=== PATIENT | male | born 1955 | race Caucasian/White ===

== ENCOUNTER 2021-10-13 19:02 | Inpatient (IN) | payer MEDICARE, OTHER ==
[~2021-10-13] VITALS: Ht 170.2 cm; Wt 81.6 kg
--- NOTE | 2021-10-13 19:30 | NUR ---
[facility]. ON 5150 HOLD FOR CUTTING HIS WRIST. PT ADMITS FEELING DEPRESSED & HAD A PINK VODKA. PATIENT CAME WITH BILATERAL WRIST RESTRAINTS ACCOMPANIED BY [employer]. PLACED IN BED 14. VITALS CHECKED.
--- NOTE | 2021-10-13 19:46 | NUR ---
COVID SWAB DONE AND SENT TO LAB
--- NOTE | 2021-10-13 19:46 | NUR ---
IV CANNULA INSERTED ON RIGHT AC USING G18 NEEDLE. BLOOD DRAWN AND SENT TO LAB
[2021-10-13] MEDS ORDERED: LORAZEPAM INJ 2 MG/ML VIAL IVP ONE (20:00)
[2021-10-13] MEDS ORDERED: IV NS 0.9% 1,000 ML IV ONE (20:00)
[2021-10-13] MEDS ORDERED: TDAP [DIPH/PERTUSSIS/TET] 0.5 ML VIAL IM ONE ×2 (20:00→20:02)
[2021-10-13] MEDS ORDERED: LORAZEPAM INJ 2 MG/ML VIAL ONE (20:02)
[2021-10-13 20:04] LABS: CALCIUM, SERUM 8.8 mg/dL (8.5-10.1); CREATININE 1.3 mg/dL (0.6-1.3); POTASSIUM 3.7 mmol/L (3.5-5.1)
[2021-10-13 20:09] LABS: ALBUMIN 3.7 g/dL (3.4-5.0); BILIRUBIN,DIRECT 0.1 mg/dL (0.0-0.2); BILIRUBIN,TOTAL 0.2 mg/dL (0.2-1.0); TOTAL PROTEIN, SERUM 7.1 g/dL (6.4-8.2)
[2021-10-13 20:12] LABS: BASOPHILS # (AUTO) 0.1 K/uL (0.0-0.2); BASOPHILS % (AUTO) 0.8 % (0.0-2.0); EOSINOPHILS % (AUTO) 2.6 % (0.0-6.0); HEMATOCRIT 41 % (39-51); HEMOGLOBIN 13.7 g/dL (13.5-17.5); LYMPHOCYTES # (AUTO) 2.2 K/uL (0.8-4.8); LYMPHOCYTES % (AUTO) 34.2 % (20.0-44.0); MEAN CORPUSCULAR HGB CONC 34 g/dl (31.0-36.0); MEAN CORPUSCULAR VOLUME 93 fL (80-96); MONOCYTES # (AUTO) 0.6 K/uL (0.1-1.30); MONOCYTES % (AUTO) 9.9 % (2.0-12.0); NEUTROPHILS # (AUTO) 3.4 K/uL (1.8-8.9); NEUTROPHILS % (AUTO) 52.5 % (43.0-81.0); PLATELET COUNT (AUTO) 212 K/uL (150-450); WHITE BLOOD COUNT (AUTO) 6.4 K/uL (4.3-11.0)
--- NOTE | 2021-10-13 20:21 | NUR ---
PT AMBULATED TO BATHROOM ACCOMPANIED BY SITTER, STEADY GAIT NOTED
--- NOTE | 2021-10-13 22:46 | NUR ---
PROVIDED PT WITH FOOD AND WATER, 1:1 SITTER. WILL CONTINUE TO MONITOR.
[2021-10-13 23:19] LABS: BILIRUBIN,URINE NEGATIVE (NEGATIVE); COLOR,URINE YELLOW (YELLOW); LEUKOCYTE ESTERASE ,URINE NEGATIVE (NEGATIVE); NITRITE, URINE NEGATIVE (NEGATIVE); PH,URINE 5.5 (5.0-8.0); PROTEIN,URINE NEGATIVE (NEGATIVE); UGLUCOSE NEGATIVE (NEGATIVE); UROBILINOGEN,URINE 0.2 EU/dL (0.2)
--- NOTE | 2021-10-14 01:08 | NUR ---
PT IS ASLEEP, 1:1 SITTER. WILL CONTINUE TO MONITOR
--- NOTE | 2021-10-14 02:19 | NUR ---
LAB AT BEDSIDE
[2021-10-14] MEDS ORDERED: LISI1TAB29 PO (02:48)
[2021-10-14] MEDS ORDERED: AMLO2.5T2 PO (02:48)
[2021-10-14] MEDS ORDERED: ROSU10TA2 PO (02:48)
[2021-10-14] MEDS ORDERED: DIAZ10TA PO (02:51)
[2021-10-14] MEDS ORDERED: QUET25TA PO (02:51)
[2021-10-14] MEDS ORDERED: HYDR-3980 PO (02:51)
--- NOTE | 2021-10-14 04:34 | NUR ---
REPORT GIVEN TO ANA SANDOVAL FOR ANGEL
--- NOTE | 2021-10-14 05:20 | NUR ---
Pt is going to unit on wheelchair on stable condition with EMT at bedside.
[2021-10-14] MEDS ORDERED: MAG HYDROX/AL HYDROX/SIMETH 30 ML UDC PO PRN (05:30)
[2021-10-14] MEDS ORDERED: ACETAMINOPHEN 325 MG TABLET PO PRN (05:30)
[2021-10-14] MEDS ORDERED: MAGNESIUM HYDROXIDE 30 ML UDC PO PRN (05:30)
[2021-10-14] MEDS ORDERED: ZOLPIDEM TARTRATE 5 MG TABLET PO PRN (05:30)
[2021-10-14 05:40] VITALS: BP 141/82
[2021-10-14] MEDS ORDERED: BLOOD SUGAR DIAGNOSTIC 1 EACH STRIP IN ONE (05:45)
[2021-10-14] MEDS ORDERED: LOPE2CAP40 PO (05:56)
[2021-10-14] MEDS ORDERED: LORAZEPAM 1 MG TABLET PO PRN (06:00)
--- NOTE | 2021-10-14 06:05 | NUR ---
GPS RN NOTE PATIENT REFUSED TO GIVE ANY FAMILY INFORMATION TO NOTIFY ABOUT HIS ADMISSION AT [facility], GPS UNIT, PER PATIENT," I WILL CALL THEM LATER, YOU DON'T NEED TO CALL ANYONE AT THE MOMENT."
--- NOTE | 2021-10-14 06:15 | NUR ---
GPS DISPOSAL PLANT OPERATOR NOTE: ADMITTED 66 Y/O MALE PATIENT FROM [facility], ER TO GPS ON 5150 HOLD, PER HOLD OFFICER RESPONDED TO A RADIO CALL OF AN ATTEMPT SUICIDE, UPON ARRIVAL OFFICERS MADE CONTACT WITH JANNIE SITTING ON HIS COUCH WITH THE FRONT DOOR OPE. OFFICERS OBSERVED SUPERFICIAL CUTS TO BOTH WRIST. JANNIE STATE, HE HAS BEEN DRINKING DUE TO BEING DEPRESSED. JANNIE STATED HE DELIBERATELY SLIT HIS WRISTS. BASED ON JANNIE SELF ADMISSION AND VISIBLE CUT TO BOTH WRISTS, OFFICERS REASONABLY BELIEVE JANNIE POSES AN IMMEDIATE THREAT A DANGER TO HIMSELF. UPON FACE TO FACE ASSESSMENT, PATIENT IS A & O X 2-3 COOPERATIVE, EASILY IRRITABLE, ANXIOUS, RESTLESS, HYPERVERBAL, PER PATIENT "FORGETFUL," DISHEVELED, DEPRESSED, FLAT AFFECT, DENIES SI /HI AT THIS TIME, PER PATIENT," THAT WAS A MISTAKE.', PT. IS AMBULATORY, UNSTEADY AT TIMES. COVID/PNEUMOCCOCAL VACCINE INFORMATION OBTAINED. PT. REFUSED FLU VACCINE. BOTH MD AWARE AND NOTIFIED OF THE ADMISSION, BELONGINGS CONTRABAND WERE DONE, PT. REFUSED TO SIGNS ADMISSION CONSENT PAPERS DUE TO BEING TIRED, SKIN ASSESSMENT AND ACCU CHECK DONE, BOTH MD AWARE AND NOTIFIED OF THE ADMISSION, BELONGINGS CONTRABAND WERE DONE, PT. RIGHTS DISCUSS BY MANAGER PRODUCT DESIGN, PROVIDED THE PT. WITH HANDBOOK AND MEDICATIONS GUIDE, ENVIRONMENTAL SAFETY CHECK DONE, ENCOURAGED PT. VERBALIZED ANY FEELING CONCERN TO STAFF, ORIENT TO UNIT POLICY, NO ACUTE DISTRESS NOTED, VITAL SIGNS WNL, DENIES ANY PAIN AT THIS TIME, SAFETY MEASURES IN PLACE. WILL CONTINUE TO MONITOR FOR Q15 SAFETY AND BEHAVIOR.
--- NOTE | 2021-10-14 06:49 | NUR ---
PER PATIENT MRSA WAS DONE IN THE ER AND REFUSED TO DO IT AT THIS TIME.
[2021-10-14] MEDS ORDERED: LISI40TA13 PO (07:51)
[2021-10-14 08:00] VITALS: BP 157/91
--- NOTE | 2021-10-14 08:02 | NUR ---
WOUND CARE CONSULT: PT PRESENTS WITH EXCORIATIONS TO BILATERAL WRISTS WITHOUT TENDERNESS, DRAINAGE OR ERYTHEMA, PRESENT ON ADMISSION. WILL SEE PRN. PT IS AMBULATORY AND CONTINENT.
[2021-10-14] MEDS ORDERED: METO100T14 PO (08:42)
[2021-10-14] MEDS: NICOTINE PATCH (21MG) 21 MG PATCH.TD24 TD SCH (08:45)
--- NOTE | 2021-10-14 09:00 | NUR ---
GPS/RN RECEIVED PT RESTING IN THE BED NO ACUTE DISTRESS NOTED. DAILY MEDS COMPLIANT. AMBULATORY. VSS. ALL NEEDS ATTENDED AND ANTICIPATED. WILL CONTINUE TO MONITOR Q15MIN FOR SAFETY AND BEHAVIOR. KEON THURMAN CLOTH LAYER CONTACTED TO RECONCILE THE HOME MEDS.
--- NOTE | 2021-10-14 10:59 | NUR ---
VERENICE Initial Discharge Note: Patient currently resides at [address] [place] [address]. Patient stated he lives with a friend and would want to return back home. Pt does not have any supportive contact at this time. VERENICE will work with the MD and treatment team to help coordinate appropriate discharge.
--- NOTE | 2021-10-14 10:59 | NUR ---
Clinical Social Work Note: Patient placed on a 5150 hold for danger to himself. Pt was drinking at home and had cut his wrist. Patient currently resides at [address] [place] [address]. Patient stated he lives with a friend and would want to return back home. Pt does not have any supportive contact at this time.
--- NOTE | 2021-10-14 11:00 | NUR ---
Social Work Note/Substance Abuse Intervention: Patient was provided with a brief substance abuse intervention and referred to [facility] ([phone]), [facility] ([phone]), and [facility] ([phone]) for drinking alcohol and smoking cigarettes.
[2021-10-14] MEDS: THIAMINE HCL 100 MG TABLET PO SCH (11:13)
[2021-10-14] MEDS: DIVALPROEX SODIUM 250 MG TABLET.DR PO SCH ×2 (11:13→17:45)
[2021-10-14] MEDS: DIAZEPAM 5 MG TABLET PO PRN (13:34)
[2021-10-14] MEDS: HYDROCODONE/APAP 10/325MG TABLET PO PRN ×2 (15:45→22:03)
[2021-10-14 16:00] VITALS: BP 137/72
[2021-10-14] MEDS: LOPERAMIDE HCL (2 MG CAP) 2 MG CAPSULE PO PRN ×2 (17:46→22:55)
--- NOTE | 2021-10-14 19:25 | NUR ---
GPS RN NOTE, RECEIVED PATIENT AWAKE AND IN BED, PATIENT HAS A COMPLAINT OF CHRONIC LOWER BACK PAIN AT 8 OUT 10 ON THE PAIN SCALE. PATIENT IS TAKING PAIN MEDICATION FOR THIS PAIN. PATIENT IS DISPLAYING NO S/S OF APPARENT DISTRESS AT THIS TIME. PATIENT BREATHING IS UNLABORED WITH EQUAL RISE AND FALL OF THE CHEST. PATIENT IS ALERT AND ORIENTED X 3 ON ROOM AIR WITH A SPO2 95%. PATIENT IS COMPLIANT WITH MEDICATIONS, ANXIOUS, NEEDY, PARANOID, MAKES NEEDS KNOWN, AND COOPERATIVE. PATIENT DENIES SUICIDAL AND HOMICIDAL IDEATIONS AT THIS TIME. PATIENT ASSISTED WITH TURNING AND REPOSITIONING Q2HR AND PRN FOR COMFORT AND CIRCULATION. PATIENT HAS NO NEEDS AT THIS TIME. PATIENT EDUCATED ON THE USE OF THE CALL DAIGLE. PATIENT BED SIDE RAILS UP X 2 FOR SAFETY. PATIENT BED IS LOCKED, LOW, WITH BED ALARM ON. WILL CONTINUE TO MONITOR THIS PATIENT Q15 MINUTES WITH THE HELP OF STAFF TO MAINTAIN SAFETY.
[2021-10-14 20:00] VITALS: BP 151/88
[2021-10-14] MEDS: ATORVASTATIN 40 MG TABLET PO SCH (21:12)
[2021-10-14] MEDS: QUETIAPINE FUMARATE 100 MG TABLET PO SCH (21:12)
[2021-10-14] MEDS: METOPROLOL TARTRATE 50 MG TABLET PO SCH (21:21)
--- NOTE | 2021-10-14 22:04 | NUR ---
GPS RN NOTE, PATIENT HAS A COMPLAINT OF CHRONIC LOWER BACK PAIN AT 8 OUT 10 ON THE PAIN SCALE AND IS REQUESTING NORCO AT THIS TIME. PATIENT VITAL SIGNS ARE STABLE. GAVE NORCO 10-325 1 TAB PO Q6HR PRN ORDERED. WILL REASSESS FOR PAIN AND I WILL CONTINUE TO MONITOR THIS PATIENT WITH THE HELP OF STAFF.
--- NOTE | 2021-10-14 22:56 | NUR ---
GPS RN NOTE, PATIENT HAS A COMPLAINT OF LOOSE STOOL AND IS REQUESTING LOPERAMIDE AT THIS TIME. PATIENT VITAL SIGNS ARE STABLE. GAVE LOPERAMIDE 2MG PO Q4HR PRN ORDERED. WILL CONTINUE TO MONITOR THIS PATIENT WITH THE HELP OF STAFF.
--- NOTE | 2021-10-15 00:54 | NUR ---
GPS RN NOTE, EKTA HAS A COMPLAINT OF NOT BEING ABLE TO SLEEP AND IS REQUESTING AMBIEN AT THIS TIME. PATIENT VITAL SIGNS ARE STABLE. GAVE AMBIEN 5MG PO HS PRN ORDERED. WILL REASSESS FOR INSOMNIA AND I WILL CONTINUE TO MONITOR THIS PATIENT WITH THE HELP OF STAFF.
[2021-10-15] MEDS: DIAZEPAM 5 MG TABLET PO PRN ×3 (02:46→16:13)
--- NOTE | 2021-10-15 02:48 | NUR ---
GPS RN NOTE, PATIENT HAS A COMPLAINT OF FEELING ANXIOUS AND IS REQUESTING VALIUM AT THIS TIME. PATIENT VITAL SIGNS ARE STABLE. GAVE VALIUM 5MG PO Q6HR PRN ORDERED. WILL REASSESS FOR ANXIETY AND I WILL CONTINUE TO MONITOR THIS PATIENT WITH THE HELP OF STAFF.
[2021-10-15] MEDS: HYDROCODONE/APAP 10/325MG TABLET PO PRN ×3 (04:38→17:03)
[2021-10-15 07:42] LABS: BASOPHILS % (AUTO) 0.9 % (0.0-2.0); EOSINOPHILS % (AUTO) 2.1 % (0.0-6.0); HEMATOCRIT 41 % (39-51); HEMOGLOBIN 13.7 g/dL (13.5-17.5); LYMPHOCYTES # (AUTO) 1.4 K/uL (0.8-4.8); LYMPHOCYTES % (AUTO) 26.2 % (20.0-44.0); MEAN CORPUSCULAR HGB CONC 34 g/dl (31.0-36.0); MEAN CORPUSCULAR VOLUME 94 fL (80-96); MONOCYTES # (AUTO) 0.8 K/uL (0.1-1.30); MONOCYTES % (AUTO) 13.9 % (2.0-12.0); NEUTROPHILS # (AUTO) 3.2 K/uL (1.8-8.9); NEUTROPHILS % (AUTO) 56.9 % (43.0-81.0); PLATELET COUNT (AUTO) 170 K/uL (150-450); RED BLOOD CELL COUNT(AUTO) 4.39 MIL/uL (4.5-6.0); WHITE BLOOD COUNT (AUTO) 5.5 K/uL (4.3-11.0)
[2021-10-15] MEDS: THIAMINE HCL 100 MG TABLET PO SCH (07:53)
[2021-10-15] MEDS: DIVALPROEX SODIUM 250 MG TABLET.DR PO SCH ×2 (07:54→16:13)
[2021-10-15] MEDS: METOPROLOL TARTRATE 50 MG TABLET PO SCH ×2 (07:54→21:05)
[2021-10-15] MEDS: NICOTINE PATCH (21MG) 21 MG PATCH.TD24 TD SCH (07:54)
[2021-10-15 08:00] VITALS: BP 146/84
[2021-10-15 08:00] LABS: CALCIUM, SERUM 8.8 mg/dL (8.5-10.1); CREATININE 0.9 mg/dL (0.6-1.3)
[2021-10-15] MEDS: BUPROPION XL 150 MG TAB.ER.24 PO SCH (08:04)
[2021-10-15] MEDS: MULTIPLE VIT (LYCOPENE/FA/MV,CA,IRON,MIN/LUT)1 TAB PO SCH (08:04)
[2021-10-15] MEDS: AMLODIPINE BESYLATE 2.5 MG TABLET PO SCH (08:05)
[2021-10-15] MEDS: LISINOPRIL (20MG) 20 MG TABLET PO SCH (08:06)
--- NOTE | 2021-10-15 09:00 | NUR ---
GPS/RN RECEIVED PT RESTING IN THE BED NO ACUTE DISTRESS NOTED. DAILY MEDS COMPLIANT. MEDS SEEKING. AMBULATORY. VSS. ALL NEEDS ATTENDED AND ANTICIPATED. WILL CONTINUE TO MONITOR Q15MIN FOR SAFETY AND BEHAVIOR.
[2021-10-15 16:00] VITALS: BP 150/89
--- NOTE | 2021-10-15 16:19 | NUR ---
GPS/RN VALIUM PO GIVEN FOR ANXIETY REQUESTED
[2021-10-15 20:18] VITALS: BP 129/81
[2021-10-15] MEDS: ATORVASTATIN 40 MG TABLET PO SCH (21:05)
[2021-10-15] MEDS: QUETIAPINE FUMARATE 100 MG TABLET PO SCH (21:05)
[2021-10-15] MEDS: LOPERAMIDE HCL (2 MG CAP) 2 MG CAPSULE PO PRN (21:33)
[2021-10-16] MEDS: HYDROCODONE/APAP 10/325MG TABLET PO PRN ×5 (01:49→22:18)
--- NOTE | 2021-10-16 05:03 | NUR ---
GPS RN NOTE, PATIENT HAS A COMPLAINT OF CHRONIC LOWER BACK PAIN AT 8 OUT 10 ON THE PAIN SCALE AND IS REQUESTING NORCO AT THIS TIME. PATIENT VITAL SIGNS ARE STABLE. PAGED [facility] AND INFORMED HANK TOMAS DNP OF MY FINDINGS. HANK TOMAS DNP GAVE ORDER FOR NORCO 10-325 1 TAB PO Q4HR PRN. ALL ORDERS NOTED AND CARRIED OUT. WILL CONTINUE TO MONITOR THIS PATIENT WITH THE HELP OF STAFF.
[2021-10-16 08:00] VITALS: BP 146/95
[2021-10-16] MEDS: BUPROPION XL 150 MG TAB.ER.24 PO SCH (08:53)
[2021-10-16] MEDS: DIVALPROEX SODIUM 250 MG TABLET.DR PO SCH ×3 (08:53→16:02)
[2021-10-16] MEDS: NICOTINE PATCH (21MG) 21 MG PATCH.TD24 TD SCH (08:53)
[2021-10-16] MEDS: AMLODIPINE BESYLATE 2.5 MG TABLET PO SCH (08:53)
[2021-10-16] MEDS: THIAMINE HCL 100 MG TABLET PO SCH (08:53)
[2021-10-16] MEDS: MULTIPLE VIT (LYCOPENE/FA/MV,CA,IRON,MIN/LUT)1 TAB PO SCH (08:53)
[2021-10-16] MEDS: LISINOPRIL (20MG) 20 MG TABLET PO SCH (08:54)
[2021-10-16] MEDS: METOPROLOL TARTRATE 50 MG TABLET PO SCH ×2 (08:55→21:19)
--- NOTE | 2021-10-16 09:00 | NUR ---
GPS/RN RECEIVED PT RESTING IN THE BED NO ACUTE DISTRESS NOTED. DAILY MEDS COMPLIANT. AMBULATORY. VSS. ALL NEEDS ATTENDED AND ANTICIPATED. WILL CONTINUE TO MONITOR Q15MIN FOR SAFETY AND BEHAVIOR.
[2021-10-16] MEDS: DIAZEPAM 5 MG TABLET PO PRN (10:37)
[2021-10-16 16:00] VITALS: BP 121/82
--- NOTE | 2021-10-16 19:20 | NUR ---
GPS RN NOTES RECEIVED PATIENT IN THE DINING ROOM. ALERT AND ORIENTED X3. ABLE TO MAKE NEEDS KNOWN. PATIENT IS ANXIOUS AT TIMES, COOPERATIVE TO CARE, NEEDY, DENIES SI/HI/AVH AT THIS TIME. SAFETY PRECAUTIONS IN PLACE. WILL CONTINUE TO MONITOR Q15MIN ROUNDS FOR SAFETY AND BEHAVIOR.
[2021-10-16 20:19] VITALS: BP 133/81
[2021-10-16] MEDS: ATORVASTATIN 40 MG TABLET PO SCH (21:18)
[2021-10-16] MEDS: QUETIAPINE FUMARATE 100 MG TABLET PO SCH (21:18)
[2021-10-17] MEDS: HYDROCODONE/APAP 10/325MG TABLET PO PRN ×5 (02:33→23:51)
[2021-10-17 08:00] VITALS: BP 143/92
[2021-10-17] MEDS: BUPROPION XL 150 MG TAB.ER.24 PO SCH (08:46)
[2021-10-17] MEDS: AMLODIPINE BESYLATE 2.5 MG TABLET PO SCH (08:47)
[2021-10-17] MEDS: MULTIPLE VIT (LYCOPENE/FA/MV,CA,IRON,MIN/LUT)1 TAB PO SCH (08:47)
[2021-10-17] MEDS: LISINOPRIL (20MG) 20 MG TABLET PO SCH (08:47)
[2021-10-17] MEDS: METOPROLOL TARTRATE 50 MG TABLET PO SCH ×2 (08:47→21:12)
[2021-10-17] MEDS: NICOTINE PATCH (21MG) 21 MG PATCH.TD24 TD SCH (08:48)
[2021-10-17] MEDS: THIAMINE HCL 100 MG TABLET PO SCH (08:48)
[2021-10-17] MEDS: DIVALPROEX SODIUM 250 MG TABLET.DR PO SCH ×3 (08:48→16:14)
--- NOTE | 2021-10-17 09:00 | NUR ---
RN NOTE- RECEIVED PT RESTING IN THE BED NO ACUTE DISTRESS NOTED. DAILY MEDS COMPLIANT. AMBULATORY. VSS. ALL NEEDS ATTENDED AND ANTICIPATED. WILL CONTINUE TO MONITOR Q15MIN FOR SAFETY AND BEHAVIOR.
--- NOTE | 2021-10-17 09:00 | NUR ---
RN NOTE- PT RESTING IN THE BED NO ACUTE DISTRESS NOTED. MED COMPLIANT. AMBULATORY. VSS. ALL NEEDS ATTENDED AND ANTICIPATED. WILL CONTINUE TO MONITOR Q15MIN FOR SAFETY AND BEHAVIOR.
[2021-10-17] MEDS: DIAZEPAM 5 MG TABLET PO PRN ×2 (09:06→17:43)
--- NOTE | 2021-10-17 09:10 | NUR ---
RN NOTE- ANXIETY AND RESTLESSNESS STATED. VALIUM 5 MG ADMINISTERED
--- NOTE | 2021-10-17 09:58 | NUR ---
VERENICE Coordination of Care: Patient will follow up with (Psychiatrist) Dr. Davila located at [facility] [facility] [address], [place] [address]; on November 14 at 11AM, coordinated by logging engineer.
--- NOTE | 2021-10-17 09:58 | NUR ---
Individual Therapy: SW me with pt to conduct therapy. Pt presented with a flat affect. He stated that "nothing is wrong with me, I need to go home". Pt has no insight into mental illness and is fixated on discharge.
--- NOTE | 2021-10-17 09:58 | NUR ---
VERENICE Note: SW met with pt to help pt coordinate and pay for his rent. 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
[2021-10-17 16:00] VITALS: BP 120/86
--- NOTE | 2021-10-17 17:43 | NUR ---
RN NOTE- ANXIETY RESTLESSNESS. VALIUM 5 MG ADMINISTERED
[2021-10-17 19:42] VITALS: BP 143/87
--- NOTE | 2021-10-17 19:47 | NUR ---
GPS RN NOTES: PATIENT IS RESTLESS, ANXIOUS, IRRITABLE WITH C/O GENERALIZED BODY PAIN. NORCO 10-325MG 1TAB GIVEN PO PRN ORDERED AT 1944. WILL CONTINUE TO MONITOR.
--- NOTE | 2021-10-17 19:51 | NUR ---
GPS RN OPENING NOTES: RECEIVED PATIENT IN HALLWAY. A/O X2-3. APPEARS DEPRESSED, FLAT AFFECT, ANXIOUS, RESTLESS, PACING WITH C/O GENERALIZED BODY PAIN. NORCO 10-325MG GIVEN PO FOR PAIN. PATIENT DENIES SI/HI AT THIS TIME. NO S/S OF DISTRESS. RESPIRATION EVEN AND UNLABORED WITH EQUAL RISE AND FALL OF THE CHEST, ON ROOM AIR. OFFERED FLUID AND SNACKS TOLERATED. WILL CONTINUE TO MONITOR Q15 FOR MOOD, SAFETY AND BEHAVIOR.
--- NOTE | 2021-10-17 20:45 | NUR ---
GPS RN NOTES: PATIENT TOOK HALDOL 2.5MG CRUSHED WITH PUDDING. HALDOL 2.5MG PARTIAL DOSE WASTED PER MD ORDER. Addendum: 10/17/21 at 2046 by AMY CHAVARRIA RN DISREGARD, WRONG PATIENT
[2021-10-17] MEDS: QUETIAPINE FUMARATE 100 MG TABLET PO SCH (21:12)
[2021-10-17] MEDS: ATORVASTATIN 40 MG TABLET PO SCH (21:12)
--- NOTE | 2021-10-17 21:17 | NUR ---
GPS RN NOTES: SEROQUEL 50MG WASTED PER PARTIAL DOSE ORDER.
--- NOTE | 2021-10-17 23:52 | NUR ---
GPS RN NOTES: PATIENT IS RESTLESS, ANXIOUS, IRRITABLE WITH C/O GENERALIZED BODY PAIN, REQUESTING FOR NORCO. NORCO 10-325MG 1TAB GIVEN PO PRN ORDERED AT 2351. WILL CONTINUE TO MONITOR.
[2021-10-18] MEDS: HYDROCODONE/APAP 10/325MG TABLET PO PRN ×3 (05:37→18:02)
--- NOTE | 2021-10-18 05:38 | NUR ---
GPS RN NOTES: PATIENT IS RESTLESS, PACING, ANXIOUS, IRRITABLE WITH C/O GENERALIZED BODY PAIN, REQUESTING FOR NORCO. NORCO 10-325MG 1TAB GIVEN PO PRN ORDERED AT 0537. WILL CONTINUE TO MONITOR.
--- NOTE | 2021-10-18 07:44 | NUR ---
RN NOTE- RECEIVED PT RESTING IN CHAIR, INTERACTIVE, CALM, NO ACUTE DISTRESS NOTED. DAILY MEDS COMPLIANT. AMBULATORY. VSS. ALL NEEDS ATTENDED AND ANTICIPATED. WILL CONTINUE TO MONITOR Q15MIN FOR SAFETY AND BEHAVIOR.
[2021-10-18 08:00] VITALS: BP 155/90
[2021-10-18] MEDS: NICOTINE PATCH (21MG) 21 MG PATCH.TD24 TD SCH (08:40)
[2021-10-18] MEDS: THIAMINE HCL 100 MG TABLET PO SCH (08:41)
[2021-10-18] MEDS: METOPROLOL TARTRATE 50 MG TABLET PO SCH ×2 (08:41→21:30)
[2021-10-18] MEDS: DIVALPROEX SODIUM 250 MG TABLET.DR PO SCH ×3 (08:41→16:10)
[2021-10-18] MEDS: AMLODIPINE BESYLATE 2.5 MG TABLET PO SCH (08:41)
[2021-10-18] MEDS: LISINOPRIL (20MG) 20 MG TABLET PO SCH (08:41)
[2021-10-18] MEDS: BUPROPION XL 150 MG TAB.ER.24 PO SCH (08:41)
[2021-10-18] MEDS: MULTIPLE VIT (LYCOPENE/FA/MV,CA,IRON,MIN/LUT)1 TAB PO SCH (08:41)
[2021-10-18] MEDS: DIAZEPAM 5 MG TABLET PO PRN (10:00)
--- NOTE | 2021-10-18 10:48 | NUR ---
VERENICE Note: SW met with pt. Pt stated that he is "feeling better" and he reported that he has a better attitude.
[2021-10-18 16:00] VITALS: BP 144/84
--- NOTE | 2021-10-18 19:20 | NUR ---
GPS RN NOTES PATIENT IN THE DINING ROOM WATCHING TV. ALERT AND ORIENTED X3. ABLE TO MAKE NEEDS KNOWN. PATIENT IS ANXIOUS, COOPERATIVE TO CARE, NEEDY, DENIES SI/HI/AVH AT THIS TIME. VERBALIZATION OF FEELINGS ENCOURAGED. SAFETY PRECAUTIONS IN PLACE. WILL CONTINUE TO MONITOR Q15MIN ROUNDS FOR SAFETY AND BEHAVIOR.
[2021-10-18 19:37] VITALS: BP 144/90
[2021-10-18] MEDS: ATORVASTATIN 40 MG TABLET PO SCH (21:29)
[2021-10-18] MEDS: QUETIAPINE FUMARATE 100 MG TABLET PO SCH (21:29)
[2021-10-19] MEDS: HYDROCODONE/APAP 10/325MG TABLET PO PRN ×3 (05:51→20:02)
[2021-10-19 08:00] VITALS: BP 147/88
[2021-10-19] MEDS: NICOTINE PATCH (21MG) 21 MG PATCH.TD24 TD SCH (08:47)
[2021-10-19] MEDS: DIVALPROEX SODIUM 250 MG TABLET.DR PO SCH ×3 (08:48→16:32)
[2021-10-19] MEDS: METOPROLOL TARTRATE 50 MG TABLET PO SCH ×2 (08:48→21:25)
[2021-10-19] MEDS: LISINOPRIL (20MG) 20 MG TABLET PO SCH (08:49)
[2021-10-19] MEDS: MULTIPLE VIT (LYCOPENE/FA/MV,CA,IRON,MIN/LUT)1 TAB PO SCH (08:49)
[2021-10-19] MEDS: THIAMINE HCL 100 MG TABLET PO SCH (08:49)
[2021-10-19] MEDS: AMLODIPINE BESYLATE 2.5 MG TABLET PO SCH (08:49)
[2021-10-19] MEDS: BUPROPION XL 150 MG TAB.ER.24 PO SCH (08:49)
--- NOTE | 2021-10-19 09:01 | NUR ---
Court Notification: Patient does not have any supportive contact to notify of [phone].
[2021-10-19] MEDS: DIAZEPAM 5 MG TABLET PO PRN ×2 (10:11→23:50)
--- NOTE | 2021-10-19 14:54 | NUR ---
Court Hearing: Patient's court hearing for 0530 was today and it was upheld for GD and danger to others.
[2021-10-19 16:00] VITALS: BP 147/77
--- NOTE | 2021-10-19 19:12 | NUR ---
GPS RN NOTES PATIENT IN THE DINING ROOM WATCHING TV. ALERT AND ORIENTED X3. ABLE TO MAKE NEEDS KNOWN. PATIENT IS ANXIOUS, COOPERATIVE TO CARE, NEEDY, NO VERBALIZATION OF THOUGHTS AND FEELINGS. VERBALIZATION OF FEELINGS ENCOURAGED. SAFETY PRECAUTIONS IN PLACE. WILL CONTINUE TO MONITOR Q15MIN ROUNDS FOR SAFETY AND BEHAVIOR.
[2021-10-19 20:00] VITALS: BP 140/86
[2021-10-19] MEDS: QUETIAPINE FUMARATE 100 MG TABLET PO SCH (21:24)
[2021-10-19] MEDS: ATORVASTATIN 40 MG TABLET PO SCH (21:25)
[2021-10-20] MEDS: HYDROCODONE/APAP 10/325MG TABLET PO PRN (06:25)
--- NOTE | 2021-10-20 07:58 | NUR ---
SW Discharge Note: Patient [place] [address] [place] [address]. Taxi will provided between 1PM. Patient has no supportive contact. Patient is alert and oriented x3. Patient denies suicidal and homicidal ideation. Patient denies visual/auditory hallucinations. Patient happy to be going back home. Patient will follow up with (Product Transfer Pumper) Dr. Kim located at [address] [facility] [address], [place] [address]; ([phone]). Patient will follow up with (Psychiatrist) Dr. Davila located at [address], [place] [address]; on November 14 at 11AM. Patient presents with euthymic mood and congruent affect.
[2021-10-20 08:00] VITALS: BP 149/82
[2021-10-20] MEDS: DIVALPROEX SODIUM 250 MG TABLET.DR PO SCH ×2 (08:21→12:24)
[2021-10-20] MEDS: NICOTINE PATCH (21MG) 21 MG PATCH.TD24 TD SCH (08:21)
[2021-10-20] MEDS: MULTIPLE VIT (LYCOPENE/FA/MV,CA,IRON,MIN/LUT)1 TAB PO SCH (08:21)
[2021-10-20] MEDS: AMLODIPINE BESYLATE 2.5 MG TABLET PO SCH (08:21)
[2021-10-20] MEDS: BUPROPION XL 150 MG TAB.ER.24 PO SCH (08:21)
[2021-10-20 08:22] VITALS: BP 149/82
[2021-10-20] MEDS: METOPROLOL TARTRATE 50 MG TABLET PO SCH (08:22)
[2021-10-20] MEDS: LISINOPRIL (20MG) 20 MG TABLET PO SCH (08:22)
[2021-10-20] MEDS: THIAMINE HCL 100 MG TABLET PO SCH (08:22)
--- NOTE | 2021-10-20 11:25 | NUR ---
Dr. Baron gave an order to D/C hold and D/C home and to follow up with psych and medical doctors. Psychiatrist provided prescription upon discharge. Dr. Crawford made aware of the discharge and provided a prescriptions. Pt. without distress, denies suicidal and homicidal. Belongings ready, pt. signed the discharged papers and ready and picturs taken for skin issues. Pt. is for discharge via a taxi and will continue to monitor for safety.
--- NOTE | 2021-10-20 13:05 | NUR ---
Pt. left the unit via a taxi and escorted by staff to the lobby with belongings. Pt. left the unit without distress and ambulatory. Pt. instructed on meds to continue at home and verbalizes understanding and advised to make a follow to his psych and medical doctors and agreed. V/S taken: BP 147/86, FL 61, RR 18, temp 97.4 and oxygen sat 99%.
== END 2021-10-20 13:05 | disposition home or self-care (01) | DRG 885 ==
LOC: ER 19:05 → GPS 10-14 03:00
PROVIDERS: ADMIT Psychiatry & Neurology Psychiatry; ATTEND Internal Medicine
DX: F31.5 Bipolar disorder, current episode depressed, severe, with psychotic features (principal); N17.0 Acute kidney failure with tubular necrosis; F10.229 Alcohol dependence with intoxication, unspecified; F10.239 Alcohol dependence with withdrawal, unspecified; E87.0 Hyperosmolality and hypernatremia; I10 Essential (primary) hypertension; Z20.822 Contact with and (suspected) exposure to COVID-19; F41.9 Anxiety disorder, unspecified; Z79.899 Other long term (current) drug therapy; S61.512D Laceration without foreign body of left wrist, subsequent encounter; X78.9XXD Intentional self-harm by unspecified sharp object, subsequent encounter; S61.511D Laceration without foreign body of right wrist, subsequent encounter; Y90.8 Blood alcohol level of 240 mg/100 ml or more; Z87.891 Personal history of nicotine dependence; Z91.81 History of falling; R53.1 Weakness; R27.8 Other lack of coordination; G31.84 Mild cognitive impairment of uncertain or unknown etiology
CPT/HCPCS: 36415; 80048-TC; 80061-TC; 80076-TC; 82962-TC; 85025-TC; 87081-TC; 90715; 97116-TC; 97530-TC; C9803; G0480; J2060; J7030

== ENCOUNTER 2021-11-23 16:48 | Inpatient (IN) | payer MEDICARE, OTHER ==
[~2021-11-23] VITALS: Ht 167.6 cm; Wt 90.7 kg
[~2021-11-23 16:48] MED LIST: AMLO2.5T2 PO; DIAZ10TA PO; HYDR-3980 PO; LISI40TA13 PO; LOPE2CAP40 PO; METO100T14 PO; ROSU10TA2 PO
--- NOTE | 2021-11-23 17:15 | NUR ---
The patient is presented to ER for feeling more depressed than usual, last drink alcohol this morning. Denies SI/HI. Denies having visual or auditory hallucinations. Will continue to monitor the patient.
--- NOTE | 2021-11-23 17:34 | NUR ---
URINE COLLECTED AND SENT TO THE LAB
--- NOTE | 2021-11-23 17:34 | NUR ---
COVID ANTIGEN SWAB DONE AND SENT TO THE LAB
[2021-11-23 17:43] LABS: BASOPHILS # (AUTO) 0.1 K/uL (0.0-0.2); BASOPHILS % (AUTO) 0.8 % (0.0-2.0); EOSINOPHILS % (AUTO) 0.2 % (0.0-6.0); HEMATOCRIT 43 % (39-51); HEMOGLOBIN 14.5 g/dL (13.5-17.5); LYMPHOCYTES # (AUTO) 1.3 K/uL (0.8-4.8); LYMPHOCYTES % (AUTO) 20.1 % (20.0-44.0); MEAN CORPUSCULAR HGB CONC 34 g/dl (31.0-36.0); MEAN CORPUSCULAR VOLUME 93 fL (80-96); MONOCYTES # (AUTO) 0.2 K/uL (0.1-1.30); MONOCYTES % (AUTO) 3.5 % (2.0-12.0); NEUTROPHILS # (AUTO) 4.8 K/uL (1.8-8.9); NEUTROPHILS % (AUTO) 75.4 % (43.0-81.0); PLATELET COUNT (AUTO) 227 K/uL (150-450); RED BLOOD CELL COUNT(AUTO) 4.64 MIL/uL (4.5-6.0); WHITE BLOOD COUNT (AUTO) 6.4 K/uL (4.3-11.0)
[2021-11-23 17:57] LABS: CREATININE 0.8 mg/dL (0.6-1.3); POTASSIUM 4.3 mmol/L (3.5-5.1)
[2021-11-23 18:05] LABS: ALBUMIN 4.4 g/dL (3.4-5.0); BILIRUBIN,DIRECT 0.2 mg/dL (0.0-0.2); BILIRUBIN,TOTAL 0.5 mg/dL (0.2-1.0)
[2021-11-23] MEDS ORDERED: IV NS 0.9% 1,000 ML IV ONE (19:00)
--- NOTE | 2021-11-23 19:20 | NUR ---
PER LAB, URINE COLLECTED
[2021-11-23 19:35] LABS: BILIRUBIN,URINE NEGATIVE (NEGATIVE); COLOR,URINE YELLOW (YELLOW); LEUKOCYTE ESTERASE ,URINE NEGATIVE (NEGATIVE); NITRITE, URINE NEGATIVE (NEGATIVE); PH,URINE 5.5 (5.0-8.0); PROTEIN,URINE NEGATIVE (NEGATIVE); UGLUCOSE NEGATIVE (NEGATIVE); UROBILINOGEN,URINE 0.2 EU/dL (0.2)
--- NOTE | 2021-11-23 19:46 | NUR ---
REPORT GIVEN TO NURSE GUTIERREZ FOR ANGEL.
[2021-11-23 19:56] LABS: BACTERIA,URINE None seen /HPF (None Seen); SQUAMOUS EPITHELIAL CELL,UR 0-2 /HPF (None Seen); WBC,URINE 0-2 /HPF (0-3)
--- NOTE | 2021-11-23 22:42 | NUR ---
ON SITE WASTEWATER SYSTEMS TECHNICIAN AT PT'S BEDSIDE
--- NOTE | 2021-11-23 23:38 | NUR ---
REPROT GIVEN TO ANA VILLAR
--- NOTE | 2021-11-24 00:11 | NUR ---
PT TAKEN TO GPS VIA ACLS PROTOCOL. VSS. ALL BELONGINGS WITH PT. IV removed. Catheter intact and site benign. Pressure and 4x4 applied to site. No bleeding noted.
[2021-11-24] MEDS ORDERED: ACETAMINOPHEN 325 MG TABLET PO PRN (01:00)
[2021-11-24] MEDS ORDERED: BLOOD SUGAR DIAGNOSTIC 1 EACH STRIP IN ONE (01:00)
[2021-11-24] MEDS ORDERED: MAG HYDROX/AL HYDROX/SIMETH 30 ML UDC PO PRN (01:00)
[2021-11-24] MEDS ORDERED: MAGNESIUM HYDROXIDE 30 ML UDC PO PRN (01:00)
[2021-11-24] MEDS ORDERED: LORAZEPAM 0.5 MG TABLET PO PRN (01:00)
--- NOTE | 2021-11-24 04:42 | NUR ---
GPS RECRUITMENT ASSISTANT NOTES: ADMITTED A 66 Y/O MALE WHO VOLUNTARILY PRESENTED HIMSELF TO THE ER WITH C/O WORSENING DEPRESSION AND ANXIETY. PATIENT REPORTS INCREASED STRESS AND FEELS OVERWHELMED AND UNABLE TO CARE FOR HIMSELF. PATIENT ALSO HAVE HIGH LEVELS OF BLOOD ALCOHOL AND ADMITS TO INCREASED DRINKING. PATIENT HAS HX OF HTN, HYPERLIPIDEMIA, ANXIETY, DEPRESSION AND BIPOLAR. UPON FACE TO FACE EVALUATION, PATIENT IS A/O X3, APPEARS DEPRESSED, DISHEVELED, FLAT AFFECT, ANXIOUS, RESTLESS, COOPERATIVE. PER PATIENT, "I'M HERE BECAUSE I NEED HELP TO GET SOBER". PATIENT DENIES ANY PAIN AT THIS TIME. PATIENT DENIES SI, HI, A/V HALLUCINATIONS. PATIENT SIGNED ALL ADMISSION PAPER WORKS. PATIENT BS80MG/DL. SKIN ASSESSMENT DONE, HAS ABRASIONS ON BILATERAL KNEES BUT COULD NOT REMEMBER HOW HE GOT THEM, PICTURES TAKEN AND PLACED IN PATIENT CHART, WOUND CONSULT ORDERED. PATIENT REFUSED PNEUMONIA VACCINE. NO S/S OF DISTRESS, RESPIRATION EVEN AND UNLABORED WITH EQUAL RISE AND FALL OF THE CHEST, ON ROOM AIR. PATIENT IS UNDER THE PSYCHIATRIC CARE OF DR GARNER AND [facility] [place]. PATIENT BELONGINGS INVENTORIED AND CONTRABAND REMOVED AND PLACED IN CONTRABAND LOCKER AND SUPERVISORS SAFE. PATIENT IS ORIENTED TO STAFF AND UNIT. PATIENT RIGHTS BOOKLET AND PRESCRIPTION MEDICATION GUIDE GIVEN TO PATIENT. PATIENT OFFERED FLUID AND SNACKS TOLERATED. ALL PATIENT CARE NEEDS HAVE BEEN MET ANTICIPATED. BED IN LOW LOCKED POSITION, SIDE RAILS UP X2 FOR SAFETY. WILL CONTINUE TO MONITOR FOR SAFETY, MOOD AND BEHAVIOR.
[2021-11-24 05:07] VITALS: BP 149/87
--- NOTE | 2021-11-24 05:28 | NUR ---
GPS RN NOTES: PATIENT DID NOT GIVE ANY NAME TO NOTIFY OF HIS ADMISSION. PER PATIENT, "MAY BE LATER".
[2021-11-24] MEDS ORDERED: BUPR150T10 PO (07:27)
[2021-11-24] MEDS ORDERED: MIRT-91 PO (07:27)
[2021-11-24] MEDS ORDERED: ROSU10TA29 PO (07:27)
[2021-11-24] MEDS ORDERED: TOPI100T PO (07:27)
[2021-11-24 08:00] VITALS: BP 153/96
--- NOTE | 2021-11-24 09:31 | NUR ---
VERENICE Initial Discharge Plan: Patient currently resides at home located at [address] [place] [address]; ([phone]). Patient has no supportive contact at this time. Pt would want to return back home upon discharge. VERENICE will work with the MD, treatment team, and pt to help coordinate appropriate discharge.
--- NOTE | 2021-11-24 09:35 | NUR ---
VERENICE Clinical Note: Pt brought to the hospital as a voluntary pt due to depression and anxiety. Patient currently resides at home located at [address] [place] [address]; ([phone]). Patient has no supportive contact at this time. Pt would want to return back home upon discharge.
--- NOTE | 2021-11-24 09:37 | NUR ---
Social Work Note/Substance Abuse Intervention: Patient was provided with a brief substance abuse intervention and referred to [facility] ([phone]), [facility] ([phone]), and [facility] ([phone]) for alcohol abuse.
--- NOTE | 2021-11-24 09:38 | NUR ---
WOUND CARE CONSULT: PT PRESENTS AMBULATORY AND CONTINENT WITH DRY ABRASIONS TO BILATERAL KNEES, PRESENT ON ADMISSION. NO ERYTHEMA, TENDERNESS OR DRAINAGE NOTED. WILL SEE PRN.
--- NOTE | 2021-11-24 10:25 | NUR ---
Pt. seen by Dr. Saucedo with orders and said he will reconcile the meds
[2021-11-24] MEDS: FOLIC ACID 1 MG TABLET PO SCH (11:21)
[2021-11-24] MEDS: CHLORDIAZEPOXIDE HCL 25 MG CAPSULE PO SCH ×3 (11:21→16:04)
[2021-11-24] MEDS: THIAMINE HCL 100 MG TABLET PO SCH (11:21)
[2021-11-24] MEDS ORDERED: CHLORDIAZEPOXIDE HCL 25 MG CAPSULE PO SCH (13:00)
--- NOTE | 2021-11-24 13:01 | NUR ---
Librium 25 mg po not given at this time due to first dose given at 11:21 AM.
[2021-11-24] MEDS: DIVALPROEX SODIUM 250 MG TABLET.DR PO SCH ×2 (13:46→16:04)
[2021-11-24 16:00] VITALS: BP 150/96
--- NOTE | 2021-11-24 17:16 | NUR ---
Called Dr. Saucedo to reconcile the meds and said he will reconcile
[2021-11-24] MEDS: HYDROCODONE/APAP 10/325MG TABLET PO PRN (18:28)
--- NOTE | 2021-11-24 19:30 | NUR ---
GPS RN NOTE, RECEIVED PATIENT AWAKE AND IN BED, NO S/S OR COMPLAINTS OF PAIN AT THIS TIME. PATIENT IS DISPLAYING NO S/S OF APPARENT DISTRESS AT THIS TIME. PATIENT BREATHING IS UNLABORED WITH EQUAL RISE AND FALL OF THE CHEST. PATIENT IS ALERT AND ORIENTED X 4 ON ROOM AIR WITH A SPO2 95%. PATIENT IS COMPLIANT WITH MEDICATIONS, DEPRESSED, MED SEEKING, AND COOPERATIVE. PATIENT DENIES SUICIDAL AND HOMICIDAL IDEATIONS AT THIS TIME. PATIENT ASSISTED WITH TURNING AND REPOSITIONING Q2HR AND PRN FOR COMFORT AND CIRCULATION. PATIENT HAS NO NEEDS AT THIS TIME. PATIENT EDUCATED ON THE USE OF THE CALL DAIGLE. PATIENT BED SIDE RAILS UP X 2 FOR SAFETY. PATIENT BED IS LOCKED, LOW, WITH BED ALARM ON. WILL CONTINUE TO MONITOR THIS PATIENT Q15 MINUTES WITH THE HELP OF STAFF TO MAINTAIN SAFETY.
[2021-11-24 20:00] VITALS: BP 133/86
[2021-11-24] MEDS: ATORVASTATIN 40 MG TABLET PO SCH (21:16)
[2021-11-24] MEDS: METOPROLOL TARTRATE 50 MG TABLET PO SCH (21:16)
[2021-11-24] MEDS ORDERED: QUETIAPINE FUMARATE 100 MG TABLET PO SCH (22:00)
[2021-11-24] MEDS ORDERED: Medication Not On Formulary EA (Rosuvastatin Calcium (Crestor) 10 MG) PO SCH (22:00)
[2021-11-24] MEDS: ZOLPIDEM TARTRATE 5 MG TABLET PO PRN (23:12)
--- NOTE | 2021-11-24 23:16 | NUR ---
GPS RN NOTE, PATIENT HAS A COMPLAINT OF NOT BEING ABLE TO SLEEP AND IS REQUESTING AMBIEN AT THIS TIME. PATIENT VITAL SIGNS ARE STABLE. GAVE AMBIEN 5MG PO HS PRN ORDERED. WILL REASSESS FOR INSOMNIA AND I WILL CONTINUE TO MONITOR THIS PATIENT WITH THE HELP OF STAFF.
[2021-11-25] MEDS: LOPERAMIDE HCL (2 MG CAP) 2 MG CAPSULE PO PRN ×2 (00:33→12:40)
[2021-11-25] MEDS: HYDROCODONE/APAP 10/325MG TABLET PO PRN ×4 (00:33→23:13)
--- NOTE | 2021-11-25 00:33 | NUR ---
GPS RN NOTE, PATIENT HAS A COMPLAINT OF HAVING A LOOSE BOWEL MOVEMENT AND IS REQUESTING LOPERAMIDE AT THIS TIME. PATIENT DENIES SEEING ANY BLOOD IN STOOL. PATIENT VITAL SIGNS ARE STABLE. PAGED [facility] AND INFORMED DR ROMELIA HAWLEY OF MY FINDINGS. DR ROMELIA HAWLEY GAVE ORDER FOR LOPERAMIDE HCL 2MG PO Q4HR PRN FOR DIARRHEA. ALL ORDERS NOTED AND CARRIED OUT. GAVE LOPERAMIDE HCL 2MG PO Q4HR PRN ORDERED. WILL CONTINUE TO MONITOR THIS PATIENT WITH THE HELP OF STAFF.
--- NOTE | 2021-11-25 00:33 | NUR ---
GPS RN NOTE, PATIENT HAS A COMPLAINT OF LOWER BACK PAIN AT 8 OUT 10 ON THE PAIN SCALE AND IS REQUESTING NORCO AT THIS TIME. PATIENT VITAL SIGNS ARE STABLE. GAVE NORCO 10-325 1 TAB PO Q6HR PRN ORDERED. WILL REASSESS PAIN AND I WILL CONTINUE TO MONITOR THIS PATIENT WITH THE HELP OF STAFF.
[2021-11-25 07:22] LABS: BILIRUBIN,TOTAL 1.4 mg/dL (0.2-1.0); CALCIUM, SERUM 8.8 mg/dL (8.5-10.1); CREATININE 0.9 mg/dL (0.6-1.3); POTASSIUM 3.5 mmol/L (3.5-5.1); TOTAL PROTEIN, SERUM 7.4 g/dL (6.4-8.2)
[2021-11-25 07:39] LABS: CHOLESTEROL 205 mg/dL (<200); HDL CHOLESTEROL 101 mg/dL (40-60); LDL 90 mg/dL (0-99); TRIGLYCERIDES 94 mg/dL (30-150)
[2021-11-25 08:00] VITALS: BP 144/65
[2021-11-25] MEDS: ENSURE ENLIVE CHOC 237 ML CAN PO SCH ×2 (08:23→16:59)
[2021-11-25] MEDS: THIAMINE HCL 100 MG TABLET PO SCH (08:27)
[2021-11-25] MEDS: CHLORDIAZEPOXIDE HCL 25 MG CAPSULE PO SCH ×3 (08:27→16:59)
[2021-11-25] MEDS: BUPROPION XL 150 MG TAB.ER.24 PO SCH (08:27)
[2021-11-25] MEDS: FOLIC ACID 1 MG TABLET PO SCH (08:27)
[2021-11-25] MEDS: METOPROLOL TARTRATE 50 MG TABLET PO SCH ×2 (08:27→20:42)
[2021-11-25] MEDS: DIVALPROEX SODIUM 250 MG TABLET.DR PO SCH ×3 (08:27→16:59)
[2021-11-25] MEDS: AMLODIPINE BESYLATE 2.5 MG TABLET PO SCH (08:28)
[2021-11-25] MEDS: LISINOPRIL (20MG) 20 MG TABLET PO SCH ×2 (08:28→16:59)
[2021-11-25] MEDS ORDERED: Medication Not On Formulary EA (Lisinopril 40 MG) PO SCH (09:00)
--- NOTE | 2021-11-25 09:00 | NUR ---
GPS/RN RECEIVED PATIENT AWAKE AND IN BED, NO S/S PAIN AT THIS TIME. NO S/S OF APPARENT DISTRESS AT THIS TIME. COMPLIANT WITH MEDICATIONS, DEPRESSED, MED SEEKING, AND COOPERATIVE. PT DENIES SUICIDAL AND HOMICIDAL IDEATIONS WILL CONTINUE TO MONITOR PT Q15 MINUTES TO MONITOR SAFETY AND BEHAVIOR.
[2021-11-25] MEDS: TOPIRAMATE 100 MG TABLET PO SCH (09:10)
[2021-11-25] MEDS: hydrOXYzine PAMOATE 25 MG CAPSULE PO PRN ×2 (11:02→20:45)
--- NOTE | 2021-11-25 14:25 | NUR ---
RN Notes: Assumed care, pt. is in the hallway and complaining of back pain and prn med given. Needs attended and will continue to monitor for safety.
[2021-11-25 16:00] VITALS: BP 116/59
--- NOTE | 2021-11-25 16:30 | NUR ---
GPS RN NOTES RECEIVED REPORT ON THIS PATIENT WHO IS AMBULATING IN HALLWAY WITH NO AGITATION AT THIS TIME. WILL CONTINUE TO MONITOR.
--- NOTE | 2021-11-25 19:00 | NUR ---
GPS RN CLOSING NOTES PATIENT ALERT AND ORIENTED, NO COMPLAINTS OF PAIN OR DISCOMFORT AT THIS TIME, LAYING IN BED. ALL NEEDS MET. REPORT GIVEN TO AUTOMOTIVE SERVICE MANAGER FOR ANGEL.
--- NOTE | 2021-11-25 19:30 | NUR ---
GPS RN OPENING NOTES: RECEIVED PATIENT AMBULATING IN HALLWAY, A/O X3. APPROPRIATE AFFECT, ANXIOUS, RESTLESS, NEEDY, REDIRECTABLE. ENCOURAGED TO VERBALIZE FEELING AND VALIDATE. DENIES PAIN, DENIES SI AT THIS TIME. NO S/S OF DISTRESS. RESPIRATION EVEN AND UNLABORED WITH EQUAL RISE AND FALL OF THE CHEST, ON ROOM AIR. OFFERED FLUID AND SNACKS TOLERATED. WILL CONTINUE TO MONITOR Q15 FOR MOOD, SAFETY AND BEHAVIOR.
--- NOTE | 2021-11-25 20:47 | NUR ---
GPS RN NOTES: PATIENT C/O ANXIETY. VISTARIL 25MG 1TAB GIVEN PO PRN AT 2044. WILL CONTINUE TO MONITOR.
[2021-11-25 20:58] VITALS: BP 158/74
[2021-11-25] MEDS: ATORVASTATIN 40 MG TABLET PO SCH (21:02)
[2021-11-25] MEDS: QUETIAPINE FUMARATE 100 MG TABLET PO SCH (21:31)
--- NOTE | 2021-11-25 21:33 | NUR ---
GPS RN NOTES: SEROQUEL 50MG WASTED PER PARTIAL DOSE ORDER.
[2021-11-25] MEDS ORDERED: MIRTAZAPINE 15 MG TABLET PO SCH (22:00)
--- NOTE | 2021-11-25 23:15 | NUR ---
GPS RN NOTES: PATIENT C/O LOWER BACK PAIN. NORCO 10/325MG 1TAB GIVEN PO PRN AT 2213. WILL CONTINUE TO MONITOR.
[2021-11-26] MEDS: HYDROCODONE/APAP 10/325MG TABLET PO PRN ×3 (05:37→20:37)
--- NOTE | 2021-11-26 05:38 | NUR ---
GPS RN NOTES: PATIENT C/O LOWER BACK PAIN. NORCO 10/325MG 1TAB GIVEN PO PRN AT 0537. WILL CONTINUE TO MONITOR.
--- NOTE | 2021-11-26 06:49 | NUR ---
GPS RN CLOSING NOTES: PATIENT IS LAYING IN BED, AWAKE, A/O X3. PATIENT SLEPT 7HRS THIS SHIFT. NO S/S OF DISTRESS. RESPIRATION EVEN AND UNLABORED WITH EQUAL RISE AND FALL OF THE CHEST, ON ROOM AIR. ALL PATIENT CARE NEEDS HAVE BEEN MET ANTICIPATED. WILL CONTINUE TO MONITOR Q15 FOR SAFETY, MOOD AND BEHAVIOR AND ENDORSE TO AM SHIFT.
[2021-11-26 08:00] VITALS: BP 150/92
[2021-11-26] MEDS: ENSURE ENLIVE CHOC 237 ML CAN PO SCH ×2 (08:00→17:00)
[2021-11-26] MEDS: BUPROPION XL 150 MG TAB.ER.24 PO SCH (08:13)
[2021-11-26] MEDS: DIVALPROEX SODIUM 250 MG TABLET.DR PO SCH ×3 (08:13→16:28)
[2021-11-26] MEDS: THIAMINE HCL 100 MG TABLET PO SCH (08:13)
[2021-11-26] MEDS: CHLORDIAZEPOXIDE HCL 25 MG CAPSULE PO SCH ×3 (08:13→16:28)
[2021-11-26] MEDS: METOPROLOL TARTRATE 50 MG TABLET PO SCH ×2 (08:14→21:46)
[2021-11-26] MEDS: FOLIC ACID 1 MG TABLET PO SCH (08:14)
[2021-11-26] MEDS: LISINOPRIL (20MG) 20 MG TABLET PO SCH ×2 (08:14→16:29)
[2021-11-26] MEDS: AMLODIPINE BESYLATE 2.5 MG TABLET PO SCH ×2 (08:15→09:57)
[2021-11-26] MEDS: TOPIRAMATE 100 MG TABLET PO SCH (08:21)
[2021-11-26 16:00] VITALS: BP 140/91
[2021-11-26] MEDS: hydrOXYzine PAMOATE 25 MG CAPSULE PO PRN (17:51)
--- NOTE | 2021-11-26 17:52 | NUR ---
RN-NOTES PATIENT COMPLAINT OF ANXIETY AND REQUESTING MEDICATION. VISTARIL 25MG P.O GIVEN PRN ORDER. WILL CONT. MONITORING FOR SAFETY AND BEHAVIOR.
--- NOTE | 2021-11-26 18:15 | NUR ---
RN-NOTES PATIENT WATCHING TV IN THE DAY ROOM A/O X3.CALM,NO ACUTE DISTRESS NOTED. COMPLIANT WITH MEDICATIONS. ABLE TO MAKE NEEDS KNOWN TO THE STAFF.ALL NEEDS ATTENDED AND ANTICIPATED. AMBULATORY STEADY GAIT. WILL CONT. MONITORING FOR SAFETY AND BEHAVIOR.WILL ENDORSE TO INCOMING NURSE FOR CONTINUITY OF CARE.
[2021-11-26 20:13] VITALS: BP 133/93
--- NOTE | 2021-11-26 20:38 | NUR ---
RN NOTES ADMINISTERED NORCO FOR PAIN PER MD ORDER. VS WNL. WILL CONTINUE TO MONITOR.
[2021-11-26] MEDS: QUETIAPINE FUMARATE 100 MG TABLET PO SCH (21:46)
[2021-11-26] MEDS: ATORVASTATIN 40 MG TABLET PO SCH (21:46)
[2021-11-26] MEDS: ZOLPIDEM TARTRATE 5 MG TABLET PO PRN (22:52)
[2021-11-27] MEDS: HYDROCODONE/APAP 10/325MG TABLET PO PRN ×3 (04:40→23:35)
--- NOTE | 2021-11-27 04:41 | NUR ---
RN NOTES ADMINISTERED NORCO FOR PAIN PER MD ORDER. VS WNL. WILL CONTINUE TO MONITOR.
--- NOTE | 2021-11-27 07:40 | NUR ---
RN OPENING NOTES: RECEIVED PATIENT AMBULATING IN HALLWAY, A/O X3. APPROPRIATE AFFECT, ANXIOUS BUT REDIRECTABLE. ENCOURAGED TO VERBALIZE FEELING AND VALIDATE. DENIES PAIN, DENIES SUICIDAL IDEATION AT THIS TIME. NO S/S OF DISTRESS NOTED. RESPIRATION EVEN AND UNLABORED WITH EQUAL RISE AND FALL OF THE CHEST, ON ROOM AIR. WILL CONTINUE TO MONITOR FOR SAFETY AND BEHAVIOR.
[2021-11-27 08:00] VITALS: BP 117/72
[2021-11-27] MEDS: ENSURE ENLIVE CHOC 237 ML CAN PO SCH ×2 (08:00→17:00)
[2021-11-27] MEDS: LISINOPRIL (20MG) 20 MG TABLET PO SCH ×2 (08:54→16:59)
[2021-11-27] MEDS: DIVALPROEX SODIUM 250 MG TABLET.DR PO SCH ×3 (08:54→16:59)
[2021-11-27] MEDS: THIAMINE HCL 100 MG TABLET PO SCH (08:54)
[2021-11-27] MEDS: METOPROLOL TARTRATE 50 MG TABLET PO SCH ×2 (08:54→21:19)
[2021-11-27] MEDS: CHLORDIAZEPOXIDE HCL 25 MG CAPSULE PO SCH ×3 (08:54→16:59)
[2021-11-27] MEDS: FOLIC ACID 1 MG TABLET PO SCH (08:54)
[2021-11-27] MEDS: BUPROPION XL 150 MG TAB.ER.24 PO SCH (08:54)
[2021-11-27] MEDS: AMLODIPINE BESYLATE 2.5 MG TABLET PO SCH (08:54)
[2021-11-27] MEDS: TOPIRAMATE 100 MG TABLET PO SCH (08:55)
[2021-11-27] MEDS: hydrOXYzine PAMOATE 25 MG CAPSULE PO PRN (13:06)
--- NOTE | 2021-11-27 13:06 | NUR ---
RN NOTES PATIENT IS VERY ANXIOUS, VISTERIL GIVEN PRN FOR ANXIETY. WILL CONTINUE TO MONITOR.
--- NOTE | 2021-11-27 15:13 | NUR ---
RN NOTES- PATIENT WANTS TO LEAVE TOMORROW PATIENT EXPRESSED TO RN THAT HE WOULD WANT TO LEAVE THE UNIT TOMORROW. PER PATIENT, HE WILL WAIT UNTIL DR. GARNER SPEAK TO HIM AND WILL ASK MD TO DISCHARGE HIM.
[2021-11-27 16:00] VITALS: BP 115/75
--- NOTE | 2021-11-27 18:41 | NUR ---
NORCO 10/325MG 1 TAB GIVEN AT 17:30 DUE TO PATIENT COMPLAINED OF BACK PAIN. RN FORGOT TO SCAN EARLIER BEFORE ADMINISTRATION, THIS RN SCANNED IT LATE.
[2021-11-27 19:46] VITALS: BP 142/91
[2021-11-27] MEDS: ATORVASTATIN 40 MG TABLET PO SCH (21:19)
[2021-11-27] MEDS: QUETIAPINE FUMARATE 100 MG TABLET PO SCH (21:19)
--- NOTE | 2021-11-27 23:35 | NUR ---
RN NOTES ADMINISTERED NORCO FOR PAIN PER PT REQUEST. VS WNL. WILL CONTINUE TO MONITOR.
[2021-11-28] MEDS: hydrOXYzine PAMOATE 25 MG CAPSULE PO PRN (02:39)
--- NOTE | 2021-11-28 02:40 | NUR ---
RN NOTES ADMINISTERED VISTARIL PER PT REQUEST FOR ANXIETY. WILL CONTINUE TO MONITOR.
[2021-11-28] MEDS: HYDROCODONE/APAP 10/325MG TABLET PO PRN (05:33)
--- NOTE | 2021-11-28 05:33 | NUR ---
RN NOTES ADMINISTERED NORCO FOR PAIN PER PT REQUEST. VS WNL. WILL CONTINUE TO MONITOR.
[2021-11-28 08:00] VITALS: BP 116/74
[2021-11-28] MEDS: ENSURE ENLIVE CHOC 237 ML CAN PO SCH (08:00)
[2021-11-28] MEDS: CHLORDIAZEPOXIDE HCL 25 MG CAPSULE PO SCH (09:09)
[2021-11-28] MEDS: AMLODIPINE BESYLATE 2.5 MG TABLET PO SCH (09:09)
[2021-11-28] MEDS: BUPROPION XL 150 MG TAB.ER.24 PO SCH (09:09)
[2021-11-28] MEDS: METOPROLOL TARTRATE 50 MG TABLET PO SCH (09:10)
[2021-11-28] MEDS: FOLIC ACID 1 MG TABLET PO SCH (09:10)
[2021-11-28] MEDS: DIVALPROEX SODIUM 250 MG TABLET.DR PO SCH (09:10)
--- NOTE | 2021-11-28 09:10 | NUR ---
VERENICE Coordination of Care: Patient will follow up with (Psychiatrist) Dr. Davila located at [facility] [facility] [address], [place] [address]; on January 02 at 10:330AM. VERENICE also gave pt referrals for substance [facility] and [facility].
[2021-11-28 09:12] VITALS: BP 116/74
[2021-11-28] MEDS: LISINOPRIL (20MG) 20 MG TABLET PO SCH (09:12)
[2021-11-28] MEDS: THIAMINE HCL 100 MG TABLET PO SCH (09:12)
--- NOTE | 2021-11-28 09:12 | NUR ---
SW Discharge Note: Patient [place] [address] [place] [address]. Please arrange taxi transportation. Pt has no supportive contact. Patient is alert and oriented x3. Patient denies suicidal and homicidal ideation. Patient denies visual/auditory hallucinations. Patient happy to be going back home. Patient will follow up with (Communication Specialist) Dr. Kim located at [address] [facility], [place] [address]; ([phone]). Patient will follow up with (Psychiatrist) Dr. Davila located at [address], [place] [address]; on January 02 at 10:30AM. Patient presents with euthymic mood and congruent affect.
[2021-11-28] MEDS: TOPIRAMATE 100 MG TABLET PO SCH (09:14)
--- NOTE | 2021-11-28 11:45 | NUR ---
Patient discharged to home in stable condition.Compliant with medications ,cooperative with treatment plans Patient denies SI/HI/AVH .Behavior improved ,psychiatric tx plans met ,medical tx plans differed for for continual monitoring .Educated pt about after care plan (Exit -care)and copy provided .Returned personal belongings to patient med list and prescription given and explained to patient able to verbalize understanding .Vs stable no c/o pain .Patient seen by and and Nino Perez DNP with discharge orders and prescriptions .Patient discharge at 11:45 with TAXI.
== END 2021-11-28 11:45 | disposition home or self-care (01) | DRG 885 ==
LOC: ER 17:01 → GPS 21:36
PROVIDERS: ADMIT Psychiatry & Neurology Psychiatry; ATTEND Internal Medicine
DX: F31.5 Bipolar disorder, current episode depressed, severe, with psychotic features (principal); F10.229 Alcohol dependence with intoxication, unspecified; F10.239 Alcohol dependence with withdrawal, unspecified; F41.9 Anxiety disorder, unspecified; I10 Essential (primary) hypertension; Z20.822 Contact with and (suspected) exposure to COVID-19; F19.10 Other psychoactive substance abuse, uncomplicated; Y90.8 Blood alcohol level of 240 mg/100 ml or more; E78.5 Hyperlipidemia, unspecified; G89.29 Other chronic pain; Z90.49 Acquired absence of other specified parts of digestive tract; Z79.899 Other long term (current) drug therapy; Z87.891 Personal history of nicotine dependence
CPT/HCPCS: 36415; 80048-TC; 80053-TC; 80061-TC; 80076-TC; 81001; 82962-TC; 85025-TC; 87081-TC; C9803; G0480; J7030; Q0177

== ENCOUNTER 2022-02-22 00:01 | Emergency (ER) | payer MEDICARE, OTHER ==
[~2022-02-22] VITALS: Ht 170.2 cm; Wt 87.1 kg
[~2022-02-22 00:01] MED LIST changes: +BUPR150T10 PO; +MIRT-91 PO; +ROSU10TA29 PO; +TOPI100T PO
--- NOTE | 2022-02-22 01:06 | NUR ---
REANNASEJAIME C/O DEPRESSION AND ANXIOUS. PT PLACED IN BED 14. BELONINGS PLACED IN LOCKER. AWAITING MD FOR EVAL AND ORDERS.
[2022-02-22 01:49] LABS: BASOPHILS % (AUTO) 0.7 % (0.0-2.0); EOSINOPHILS % (AUTO) 1.8 % (0.0-6.0); HEMATOCRIT 39 % (39-51); LYMPHOCYTES # (AUTO) 1.6 K/uL (0.8-4.8); LYMPHOCYTES % (AUTO) 30.9 % (20.0-44.0); MEAN CORPUSCULAR HGB CONC 34 g/dl (31.0-36.0); MEAN CORPUSCULAR VOLUME 95 fL (80-96); MONOCYTES # (AUTO) 0.6 K/uL (0.1-1.30); MONOCYTES % (AUTO) 12.2 % (2.0-12.0); NEUTROPHILS # (AUTO) 2.8 K/uL (1.8-8.9); NEUTROPHILS % (AUTO) 54.4 % (43.0-81.0); PLATELET COUNT (AUTO) 198 K/uL (150-450); RED BLOOD CELL COUNT(AUTO) 4.07 MIL/uL (4.5-6.0); WHITE BLOOD COUNT (AUTO) 5.2 K/uL (4.3-11.0)
[2022-02-22 01:57] LABS: CALCIUM, SERUM 8.6 mg/dL (8.5-10.1); POTASSIUM 3.9 mmol/L (3.5-5.1)
[2022-02-22 02:02] LABS: ALBUMIN 3.6 g/dL (3.4-5.0); BILIRUBIN,DIRECT 0.1 mg/dL (0.0-0.2); BILIRUBIN,TOTAL 0.2 mg/dL (0.2-1.0); TOTAL PROTEIN, SERUM 6.8 g/dL (6.4-8.2)
--- NOTE | 2022-02-22 03:43 | NUR ---
PT PROVIDED WITH MORE BLANKETS.
--- NOTE | 2022-02-22 05:18 | NUR ---
PT NOTED TO BE ASLEEP. WILL CONTINUE TO MONITOR.
[2022-02-22 05:25] LABS: BILIRUBIN,URINE NEGATIVE (NEGATIVE); COLOR,URINE YELLOW (YELLOW); LEUKOCYTE ESTERASE ,URINE NEGATIVE (NEGATIVE); NITRITE, URINE NEGATIVE (NEGATIVE); PH,URINE 5.5 (5.0-8.0); PROTEIN,URINE NEGATIVE (NEGATIVE); UGLUCOSE NEGATIVE (NEGATIVE); UROBILINOGEN,URINE 0.2 EU/dL (0.2)
[2022-02-22 06:43] VITALS: BP 139/75
--- NOTE | 2022-02-22 06:43 | NUR ---
PT DECIDED TO LEAVE. AOX4. AMBULATORY WITH STEADY GAIT. DENIED SI AND HI. ADRIANNE PADRON MADE AWARE.
== END 2022-02-22 06:47 | disposition home or self-care (01) ==
LOC: ER 01:33
DX: F32.A Depression, unspecified (principal); F41.9 Anxiety disorder, unspecified; F10.129 Alcohol abuse with intoxication, unspecified; F19.10 Other psychoactive substance abuse, uncomplicated; Y90.8 Blood alcohol level of 240 mg/100 ml or more; Z79.899 Other long term (current) drug therapy; G89.29 Other chronic pain; M54.9 Dorsalgia, unspecified; I10 Essential (primary) hypertension; Z20.822 Contact with and (suspected) exposure to COVID-19
CPT/HCPCS: 36415; 80048-TC; 80076-TC; 85025-TC; C9803; G0480

== ENCOUNTER 2023-05-02 23:53 | Inpatient (IN) | payer MEDICARE, OTHER ==
[~2023-05-02] VITALS: Ht 170.2 cm; Wt 82.6 kg
[2023-05-03] VITALS (16 sets, daily range): BP systolic 130–149; BP diastolic 85–92; TEMP 97.5–98.9; O2SAT 85–97
[2023-05-03] MEDS ORDERED: methylPREDNISolone SOD SUCC 125 MG/2ML VIAL ONE (00:11)
[2023-05-03] MEDS ORDERED: ALBUTEROL FS 2.5 MG/3 ML VIAL.NEB ONE (00:22)
[2023-05-03 00:28] LABS: BASOPHILS % (AUTO) 0.2 % (0.0-2.0); EOSINOPHILS % (AUTO) 0.1 % (0.0-6.0); HEMATOCRIT 40 % (39-51); HEMOGLOBIN 13.3 g/dL (13.5-17.5); LYMPHOCYTES # (AUTO) 1.4 K/uL (0.8-4.8); LYMPHOCYTES % (AUTO) 26.1 % (20.0-44.0); MEAN CORPUSCULAR HEMOGLOBIN 32 PG (26.0-33.0); MEAN CORPUSCULAR HGB CONC 34 g/dl (31.0-36.0); MEAN CORPUSCULAR VOLUME 94 fL (80-96); MONOCYTES # (AUTO) 1.1 K/uL (0.1-1.30); MONOCYTES % (AUTO) 19.8 % (2.0-12.0); NEUTROPHILS # (AUTO) 2.9 K/uL (1.8-8.9); NEUTROPHILS % (AUTO) 53.8 % (43.0-81.0); PLATELET COUNT (AUTO) 222 K/uL (150-450); RED BLOOD CELL COUNT(AUTO) 4.22 MIL/uL (4.5-6.0); RED CELL DISTRIBUTION WIDTH 13.5 % (11.5-15.0); WHITE BLOOD COUNT (AUTO) 5.5 K/uL (4.3-11.0)
[2023-05-03] MEDS ORDERED: ALBUTEROL FS 2.5 MG/0.5 ML VIAL.NEB ONE (00:29)
[2023-05-03] MEDS ORDERED: methylPREDNISolone SOD SUCC 125 MG/2ML VIAL IV ONE (00:30)
[2023-05-03] MEDS ORDERED: ALBUTEROL FS 2.5 MG/0.5 ML VIAL.NEB NEB ONE (00:30)
[2023-05-03] MEDS ORDERED: ALBUTEROL FS 2.5 MG/3 ML VIAL.NEB NEB ONE (00:30)
[2023-05-03 00:54] LABS: INR 0.94 (0.91-1.10); PARTIAL THROMBOPLASTIN TIME 31.6 SEC (24.3-34.3)
[2023-05-03 01:03] LABS: CALCIUM, SERUM 8.5 mg/dL (8.5-10.1); CARBON DIOXIDE 28 mmol/L (21-32); CHLORIDE 95 mmol/L (98-107); CREATININE 0.7 mg/dL (0.6-1.3); GLUCOSE 76 mg/dL (74-106); POTASSIUM 3.2 mmol/L (3.5-5.1); SODIUM SERUM 136 mmol/L (136-145); UREA NITROGEN, BLOOD 7 mg/dL (7-18)
[2023-05-03] MEDS ORDERED: ONDANSETRON HCL/PF 4 MG/2 ML VIAL ONE (01:18)
[2023-05-03 01:29] LABS: ALANINE AMINOTRANSFERASE 51 U/L (12-78); ALBUMIN 2.8 g/dL (3.4-5.0); ALKALINE PHOSPHATASE 89 U/L (46-116); ASPARTATE AMINOTRANSFERASE 57 U/L (15-37); BILIRUBIN,DIRECT 0.2 mg/dL (0.0-0.2); BILIRUBIN,TOTAL 0.4 mg/dL (0.2-1.0); TOTAL PROTEIN, SERUM 7.1 g/dL (6.4-8.2)
[2023-05-03] MEDS ORDERED: ONDANSETRON HCL/PF 4 MG/2 ML VIAL IV ONE (01:30)
[2023-05-03 01:33] LABS: LACTIC ACID 3.3 mmol/L (0.4-2.0)
[2023-05-03] MEDS ORDERED: AZITHROMYCIN 500 MG VIAL ONE (01:39)
[2023-05-03] MEDS ORDERED: CEFTRIAXONE 1GM BAG (ER ONLY) 50 ML IV ONE (01:39)
[2023-05-03] MEDS ORDERED: IOHEXOL-350 100 ML VIAL IV ONE (01:53)
[2023-05-03] MEDS ORDERED: CT SWABBABLE VALVE TRANS SET 1 EA INFUS.SET MC ONE (01:53)
[2023-05-03] MEDS ORDERED: IV NS 0.9% 250 ML IV ONE (01:53)
[2023-05-03] MEDS ORDERED: ONDANSETRON HCL/PF 4 MG/2 ML VIAL IVP PRN (02:00)
[2023-05-03] MEDS ORDERED: Z GUARD REMEDY 4 OZ OINT TP PRN (02:00)
[2023-05-03] MEDS ORDERED: AZITHROMYCIN 500 MG in IV D5W 250 ML IV SCH (02:00)
[2023-05-03] MEDS ORDERED: ACETAMINOPHEN 325 MG TABLET PO PRN (02:00)
[2023-05-03] MEDS ORDERED: MAGNESIUM HYDROXIDE 30 ML UDC PO PRN (02:00)
[2023-05-03] MEDS ORDERED: CEFTRIAXONE 1GM BAG (ER ONLY) 1 GM/50 ML PIGGYBACK IV ONE (02:00)
[2023-05-03] MEDS: methylPREDNISolone SOD SUCC 125 MG/2ML VIAL IV SCH ×3 (04:45→22:23)
[2023-05-03] MEDS: LEVALBUTEROL HCL NEB 1.25 MG/0.5 ML VIAL.NEB NEB SCH ×6 (04:52→23:58)
[2023-05-03] MEDS: IPRATROPIUM NEB FS 0.5 MG/2.5 ML AMPUL.NEB NEB SCH ×6 (04:52→23:58)
[2023-05-03] MEDS: PANTOPRAZOLE 40 MG TABLET.DR PO SCH ×2 (07:32→07:59)
[2023-05-03] MEDS ORDERED: DIAZ10TA4 PO (08:22)
[2023-05-03] MEDS ORDERED: QUET100T PO (08:22)
[2023-05-03] MEDS ORDERED: ROSU10TA29 PO (08:30)
[2023-05-03] MEDS ORDERED: HYDR-3980 PO (08:30)
[2023-05-03] MEDS ORDERED: BUPR150T10 PO (08:30)
[2023-05-03] MEDS ORDERED: AMLO2.5T2 PO (08:30)
[2023-05-03] MEDS ORDERED: MIRT-91 PO (08:30)
[2023-05-03] MEDS ORDERED: METO100T14 PO (08:30)
[2023-05-03] MEDS ORDERED: LISI40TA13 PO (08:30)
[2023-05-03] MEDS: ENOXAPARIN SODIUM 40 MG/0.4 ML DISP.SYRIN SQ SCH (09:06)
[2023-05-03] MEDS ORDERED: POTASSIUM CHLORIDE 20 MEQ TAB.PRT.SR PO ONE (11:00)
[2023-05-03 14:16] LABS: NT-PRO BNP 293 pg/mL (0-125)
[2023-05-03] MEDS: LISINOPRIL (20MG) 20 MG TABLET PO SCH (17:20)
[2023-05-03] MEDS: HYDROCODONE/APAP 10/325MG TABLET PO PRN (17:20)
[2023-05-03] MEDS ORDERED: QUETIAPINE FUMARATE 100 MG TABLET PO SCH (18:00)
[2023-05-03] MEDS: QUETIAPINE FUMARATE 100 MG TABLET PO SCH (22:23)
[2023-05-03] MEDS: MIRTAZAPINE 15 MG TABLET PO SCH (22:24)
[2023-05-03] MEDS: ATORVASTATIN 40 MG TABLET PO SCH (22:25)
[2023-05-04] VITALS (14 sets, daily range): BP systolic 121–153; BP diastolic 70–97; TEMP 97.6–98.1; O2SAT 89–97
[2023-05-04] MEDS: CEFTRIAXONE 1 G in IV D5W 50 ML IV SCH (01:48)
[2023-05-04] MEDS: AZITHROMYCIN 500 MG in IV D5W 250 ML IV SCH (02:29)
[2023-05-04] MEDS: IPRATROPIUM NEB FS 0.5 MG/2.5 ML AMPUL.NEB NEB SCH ×5 (03:30→20:44)
[2023-05-04] MEDS: LEVALBUTEROL HCL NEB 1.25 MG/0.5 ML VIAL.NEB NEB SCH ×5 (03:30→20:44)
[2023-05-04] MEDS: methylPREDNISolone SOD SUCC 125 MG/2ML VIAL IV SCH ×3 (04:48→20:51)
[2023-05-04 06:17] LABS: HEMATOCRIT 38 % (39-51); HEMOGLOBIN 12.7 g/dL (13.5-17.5); LYMPHOCYTES # (AUTO) 0.4 K/uL (0.8-4.8); LYMPHOCYTES % (AUTO) 3.8 % (20.0-44.0); MEAN CORPUSCULAR HEMOGLOBIN 32 PG (26.0-33.0); MEAN CORPUSCULAR HGB CONC 33 g/dl (31.0-36.0); MEAN CORPUSCULAR VOLUME 95 fL (80-96); MONOCYTES # (AUTO) 1.1 K/uL (0.1-1.30); MONOCYTES % (AUTO) 10.4 % (2.0-12.0); NEUTROPHILS # (AUTO) 9.5 K/uL (1.8-8.9); NEUTROPHILS % (AUTO) 85.8 % (43.0-81.0); PLATELET COUNT (AUTO) 308 K/uL (150-450); RED BLOOD CELL COUNT(AUTO) 4.02 MIL/uL (4.5-6.0); RED CELL DISTRIBUTION WIDTH 13.5 % (11.5-15.0)
[2023-05-04 07:11] LABS: CREATININE 0.8 mg/dL (0.6-1.3); POTASSIUM 3.5 mmol/L (3.5-5.1)
[2023-05-04 08:08] LABS: MAGNESIUM 2.1 mg/dL (1.8-2.4)
[2023-05-04] MEDS: PANTOPRAZOLE 40 MG TABLET.DR PO SCH (08:24)
[2023-05-04] MEDS: ENOXAPARIN SODIUM 40 MG/0.4 ML DISP.SYRIN SQ SCH (09:29)
[2023-05-04] MEDS: AMLODIPINE BESYLATE 2.5 MG TABLET PO SCH (09:30)
[2023-05-04] MEDS: buPROPion SR 150 MG TABLET.ER PO SCH (09:30)
[2023-05-04] MEDS: METOPROLOL SUCCINATE 50 MG TAB.SR.24H PO SCH (09:31)
[2023-05-04] MEDS: LISINOPRIL (20MG) 20 MG TABLET PO SCH ×2 (09:31→17:14)
[2023-05-04] MEDS: HYDROCODONE/APAP 10/325MG TABLET PO PRN (17:35)
[2023-05-04] MEDS ORDERED: LORAZEPAM 1 MG TABLET PO PRN ×2 (19:00)
[2023-05-04] MEDS: BUDESONIDE RESPULE INH 0.25 MG/2 ML AMPUL.NEB NEB SCH (20:45)
[2023-05-04] MEDS: ATORVASTATIN 40 MG TABLET PO SCH (21:36)
[2023-05-04] MEDS: QUETIAPINE FUMARATE 100 MG TABLET PO SCH (21:37)
[2023-05-04] MEDS: MIRTAZAPINE 15 MG TABLET PO SCH (21:37)
[2023-05-05] VITALS (15 sets, daily range): BP systolic 128–169; BP diastolic 69–94; TEMP 97.3–99; O2SAT 84–98
[2023-05-05] MEDS: IPRATROPIUM NEB FS 0.5 MG/2.5 ML AMPUL.NEB NEB SCH ×7 (00:07→23:30)
[2023-05-05] MEDS: LEVALBUTEROL HCL NEB 1.25 MG/0.5 ML VIAL.NEB NEB SCH ×7 (00:07→23:30)
[2023-05-05] MEDS: CEFTRIAXONE 1 G in IV D5W 50 ML IV SCH (01:43)
[2023-05-05] MEDS: AZITHROMYCIN 500 MG in IV D5W 250 ML IV SCH (01:44)
[2023-05-05] MEDS: methylPREDNISolone SOD SUCC 125 MG/2ML VIAL IV SCH ×3 (04:41→21:20)
[2023-05-05 06:18] LABS: HEMATOCRIT 40 % (39-51); HEMOGLOBIN 13.1 g/dL (13.5-17.5); LYMPHOCYTES # (AUTO) 0.5 K/uL (0.8-4.8); LYMPHOCYTES % (AUTO) 3.2 % (20.0-44.0); MEAN CORPUSCULAR HEMOGLOBIN 31 PG (26.0-33.0); MEAN CORPUSCULAR HGB CONC 32 g/dl (31.0-36.0); MEAN CORPUSCULAR VOLUME 96 fL (80-96); MONOCYTES # (AUTO) 1.1 K/uL (0.1-1.30); MONOCYTES % (AUTO) 7.6 % (2.0-12.0); NEUTROPHILS # (AUTO) 13.4 K/uL (1.8-8.9); NEUTROPHILS % (AUTO) 89.2 % (43.0-81.0); PLATELET COUNT (AUTO) 361 K/uL (150-450); RED CELL DISTRIBUTION WIDTH 13.9 % (11.5-15.0); WHITE BLOOD COUNT (AUTO) 15.1 K/uL (4.3-11.0)
[2023-05-05 06:54] LABS: CALCIUM, SERUM 9.1 mg/dL (8.5-10.1); MAGNESIUM 2.4 mg/dL (1.8-2.4); PHOSPHORUS 2.5 mg/dL (2.5-4.9); POTASSIUM 3.6 mmol/L (3.5-5.1)
[2023-05-05] MEDS: BUDESONIDE RESPULE INH 0.25 MG/2 ML AMPUL.NEB NEB SCH ×2 (07:43→19:55)
[2023-05-05] MEDS: LISINOPRIL (20MG) 20 MG TABLET PO SCH ×2 (09:17→17:12)
[2023-05-05] MEDS: buPROPion SR 150 MG TABLET.ER PO SCH (09:17)
[2023-05-05] MEDS: AMLODIPINE BESYLATE 2.5 MG TABLET PO SCH (09:17)
[2023-05-05] MEDS: METOPROLOL SUCCINATE 50 MG TAB.SR.24H PO SCH (09:18)
[2023-05-05] MEDS: PANTOPRAZOLE 40 MG TABLET.DR PO SCH (09:20)
[2023-05-05] MEDS: ENOXAPARIN SODIUM 40 MG/0.4 ML DISP.SYRIN SQ SCH (09:21)
[2023-05-05] MEDS: MIRTAZAPINE 15 MG TABLET PO SCH (21:20)
[2023-05-05] MEDS: HYDROCODONE/APAP 10/325MG TABLET PO PRN (21:21)
[2023-05-05] MEDS: ATORVASTATIN 40 MG TABLET PO SCH (21:21)
[2023-05-05] MEDS: QUETIAPINE FUMARATE 100 MG TABLET PO SCH (21:21)
[2023-05-06] VITALS (11 sets, daily range): BP systolic 139–159; BP diastolic 85–94; TEMP 97.5–97.8; O2SAT 90–99
[2023-05-06] MEDS: CEFTRIAXONE 1 G in IV D5W 50 ML IV SCH (01:35)
[2023-05-06] MEDS: AZITHROMYCIN 500 MG in IV D5W 250 ML IV SCH (02:21)
[2023-05-06] MEDS: LEVALBUTEROL HCL NEB 1.25 MG/0.5 ML VIAL.NEB NEB SCH ×4 (03:12→15:56)
[2023-05-06] MEDS: IPRATROPIUM NEB FS 0.5 MG/2.5 ML AMPUL.NEB NEB SCH ×4 (03:12→15:57)
[2023-05-06] MEDS: methylPREDNISolone SOD SUCC 125 MG/2ML VIAL IV SCH ×3 (04:48→17:00)
[2023-05-06] MEDS: BUDESONIDE RESPULE INH 0.25 MG/2 ML AMPUL.NEB NEB SCH (07:54)
[2023-05-06] MEDS: buPROPion SR 150 MG TABLET.ER PO SCH (08:41)
[2023-05-06] MEDS: PANTOPRAZOLE 40 MG TABLET.DR PO SCH (08:41)
[2023-05-06] MEDS: ENOXAPARIN SODIUM 40 MG/0.4 ML DISP.SYRIN SQ SCH (08:42)
[2023-05-06] MEDS: LISINOPRIL (20MG) 20 MG TABLET PO SCH ×2 (08:42→17:04)
[2023-05-06] MEDS: METOPROLOL SUCCINATE 50 MG TAB.SR.24H PO SCH (08:43)
[2023-05-06] MEDS: AMLODIPINE BESYLATE 2.5 MG TABLET PO SCH (08:44)
[2023-05-06] MEDS: HYDROCODONE/APAP 10/325MG TABLET PO PRN (15:02)
[2023-05-06] MEDS ORDERED: ALBU8.5H8 INH (15:59)
[2023-05-06] MEDS ORDERED: AZIT250T13 PO (15:59)
[2023-05-06] MEDS ORDERED: METH4TAB3 PO (15:59)
[2023-05-07 20:06] LABS: *MYCOPLASMA PNEUMONIAE IgG 685 U/mL (0-99); *MYCOPLASMA PNEUMONIAE IgM <770 U/mL (0-769)
[2023-05-07 21:06] LABS: LEGIONELLA PNEUMOPHILIA AB <0.91 OD ratio (0.00-0.90)
== END 2023-05-06 17:40 | disposition home or self-care (01) | DRG 190 ==
LOC: ER 05-03 00:01 → TELE1 05-03 01:24
PROVIDERS: ADMIT Nurse Practitioner Family; ATTEND Nurse Practitioner Acute Care
DX: J44.0 Chronic obstructive pulmonary disease with (acute) lower respiratory infection (principal); J15.9 Unspecified bacterial pneumonia; J96.91 Respiratory failure, unspecified with hypoxia; E87.20 Acidosis, unspecified; F17.210 Nicotine dependence, cigarettes, uncomplicated; J44.1 Chronic obstructive pulmonary disease with (acute) exacerbation; G89.29 Other chronic pain; M54.9 Dorsalgia, unspecified; E78.5 Hyperlipidemia, unspecified; Z66 Do not resuscitate; Z79.899 Other long term (current) drug therapy; I11.9 Hypertensive heart disease without heart failure; F31.9 Bipolar disorder, unspecified; F41.9 Anxiety disorder, unspecified
CPT/HCPCS: 36415; 36600; 71045-TC; 80048-TC; 80061-TC; 80076-TC; 82803-TC; 83605-TC; 83735-TC; 83880; 84100-TC; 84484-TC; 85025-TC; 85730-TC; 86713; 86738; 87040-TC; 94799-TC; A4223; C9803; G0378; J0456; J0696; J1650; J2405; J2930; J7050; J7060; Q9967

== ENCOUNTER 2025-02-18 17:16 | Emergency (ER) | payer MEDICARE, OTHER ==
[~2025-02-18] VITALS: Ht 172.7 cm; Wt 83.0 kg
[~2025-02-18 17:16] MED LIST changes: +ALBU8.5H8 INH; +AZIT250T13 PO; -DIAZ10TA PO; +DIAZ10TA4 PO; -LOPE2CAP40 PO; +METH4TAB3 PO; +QUET100T PO; -ROSU10TA2 PO; -TOPI100T PO
[2025-02-18 17:24] VITALS: TEMP 98.2
[2025-02-18] MEDS ORDERED: NALOXONE HCL 0.4 MG/ML AMPUL ONE (18:06)
[2025-02-18 18:08] LABS: PLATELET COUNT (AUTO) 206 K/uL (150-450); RED BLOOD CELL COUNT(AUTO) 4.53 MIL/uL (4.5-6.0); RED CELL DISTRIBUTION WIDTH 14.2 % (11.5-15.0); WHITE BLOOD COUNT (AUTO) 9.2 K/uL (4.3-11.0)
[2025-02-18] MEDS: NALOXONE HCL 0.4 MG/ML AMPUL IV ONE (18:11)
[2025-02-18 18:14] LABS: APPEARANCE,URINE CLEAR (CLEAR); BLOOD, URINE NEGATIVE Ery/uL (NEGATIVE); LEUKOCYTE ESTERASE ,URINE NEGATIVE (NEGATIVE); NITRITE, URINE NEGATIVE (NEGATIVE); UGLUCOSE NEGATIVE (NEGATIVE)
[2025-02-18 18:22] LABS: ALCOHOL, BLOOD 204 mg/dL (0-10); ASPARTATE AMINOTRANSFERASE 14 U/L (15-37); CALCIUM, SERUM 8.8 mg/dL (8.5-10.1); CREATININE 1.1 mg/dL (0.6-1.3); SODIUM SERUM 137 mmol/L (136-145); TOTAL PROTEIN, SERUM 6.8 g/dL (6.4-8.2); UREA NITROGEN, BLOOD 16 mg/dL (7-18)
[2025-02-18 18:27] LABS: AMPHETAMINE, URINE NEGATIVE (NEGATIVE); BARBITURATE, URINE NEGATIVE (NEGATIVE); COCCAINE, URINE NEGATIVE (NEGATIVE)
[2025-02-18 18:32] LABS: BENZODIAZEPINE, URINE POSITIVE (NEGATIVE); CANNABINOID, URINE POSITIVE (NEGATIVE); OPIATE, URINE POSITIVE (NEGATIVE)
[2025-02-19 04:03] VITALS: BP 109/78; O2SAT 100
== END 2025-02-19 04:04 | disposition home or self-care (01) ==
LOC: ER 17:23
DX: T51.8X1A Toxic effect of other alcohols, accidental (unintentional), initial encounter (principal); T50.991A Poisoning by other drugs, medicaments and biological substances, accidental (unintentional), initial encounter; F17.200 Nicotine dependence, unspecified, uncomplicated; F32.A Depression, unspecified; F41.9 Anxiety disorder, unspecified; F10.90 Alcohol use, unspecified, uncomplicated; G89.29 Other chronic pain; I10 Essential (primary) hypertension; J44.9 Chronic obstructive pulmonary disease, unspecified; Z79.899 Other long term (current) drug therapy; Z90.49 Acquired absence of other specified parts of digestive tract; Z20.822 Contact with and (suspected) exposure to COVID-19; Z86.79 Personal history of other diseases of the circulatory system; Z60.2 Problems related to living alone; Y92.89 Other specified places as the place of occurrence of the external cause; Y90.7 Blood alcohol level of 200-239 mg/100 ml
CPT/HCPCS: 99285; 96374; 85025; 80048; 80076; 81003; 36415; 87426; 80143; 80320; 80307; J2312; G0480

== ENCOUNTER 2025-02-19 06:35 | Emergency (ER) | payer MEDICARE, OTHER | END 2025-02-19 07:47 | disposition home or self-care (01) | LOC: ER 06:37 | DX: F32.A Depression, unspecified (principal); Z53.21 Procedure and treatment not carried out due to patient leaving prior to being seen by health care provider ==